=== PATIENT | male | born 2005 | race Caucasian/White ===

== ENCOUNTER 2023-12-24 13:53 | Emergency (ER) | payer OTHER ==
[~2023-12-24] VITALS: Ht 177.8 cm; Wt 84.1 kg
[2023-12-24 15:24] LABS: RSV AMPLIFICATION NEGATIVE (NEGATIVE)
[2023-12-24 16:56] VITALS: BP 126/63; TEMP 99.9; O2SAT 100
[2023-12-24] MEDS: ACETAMINOPHEN TAB 650MG DOSE (2X325MG) PO ONE (16:56)
== END 2023-12-24 16:59 | disposition home or self-care (01) ==
LOC: M ED 13:53
DX: J09.X2 Influenza due to identified novel influenza A virus with other respiratory manifestations (principal)

== ENCOUNTER 2024-05-26 14:34 | Emergency (ER) | payer OTHER ==
[~2024-05-26] VITALS: Ht 177.8 cm; Wt 84.2 kg
[2024-05-26] MEDS: NS 1,000 ML IV ONE (18:44)
[2024-05-26] MEDS: KETOROLAC 30 MG/ML 1ML VIAL IV ONE (18:44)
[2024-05-26 18:55] LABS: BASO % 0.3 % (0.0-1.0); EOS # 0.1 10^3/uL (0.0-0.5); EOS % 0.5 % (0.0-3.0); HEMATOCRIT 46.1 % (42.0-52.0); HEMOGLOBIN 15.6 g/dl (13.5-17.5); LYMPH # 2.2 10^3/uL (1.5-5.0); LYMPH % 23.3 % (24.0-44.0); MEAN CORPUSCULAR HEMOGLOBIN 29.7 pg (27.0-33.0); MEAN CORPUSCULAR HGB CONC 33.8 g/dl (32.0-36.5); MEAN CORPUSCULAR VOLUME 87.8 fl (80.0-96.0); MONO # 0.5 10^3/uL (0.0-0.8); MONO % 5.5 % (2.0-8.0); NEUTROPHILS # 6.5 10^3/uL (1.5-8.5); NEUTROPHILS % 70.2 % (36.0-66.0); PLATELET COUNT, AUTOMATED 243 10^3/uL (150-450); RED BLOOD COUNT 5.25 10^6/uL (4.30-6.10); WHITE BLOOD COUNT 9.3 10^3/uL (4.0-10.0)
[2024-05-26 19:20] LABS: BLOOD UREA NITROGEN 11 MG/DL (9-23); CALCIUM LEVEL 9.3 MG/DL (8.5-10.1); CARBON DIOXIDE LEVEL 27 MMOL/L (20-31); CHLORIDE LEVEL 105 MMOL/L (98-107); CK-MB VALUE MASS < 1.0 NG/ML (<3.6); CPK CREATINE PHOSPHOKINASE 153 U/L (46-171); CREATININE FOR GFR 0.86 MG/DL (0.70-1.30); GLOMERULAR FILTRATION RATE > 60.0 (>60); GLUCOSE, FASTING 85 MG/DL (60-100); MB/CK RELATIVE INDEX 0.65 (< OR =4); POTASSIUM SERUM 3.9 MMOL/L (3.5-5.1); SODIUM LEVEL 139 MMOL/L (136-145)
[2024-05-26] MEDS ORDERED: ANEC4CRE3 TOP (19:39)
[2024-05-26] MEDS ORDERED: NAPR-837 PO (19:39)
[2024-05-26 19:44] VITALS: BP 138/83; TEMP 98.4; O2SAT 100
== END 2024-05-26 19:44 | disposition home or self-care (01) ==
LOC: M ED 14:34
DX: R07.89 Other chest pain (principal); M94.0 Chondrocostal junction syndrome [Tietze]
CPT/HCPCS: 71046; 80048; 82550; 82553; 84484; 85025; 85379; 93005; 96361; 96374; 99284; J1885